=== PATIENT | female | born 1965 | race African-American/Black ===

== ENCOUNTER 2022-06-22 08:40 | Day surgery (SDC) | payer MEDICARE, OTHER ==
[~2022-06-22] VITALS: Ht 157.5 cm; Wt 74.4 kg
[~2022-06-22 08:40] MED LIST: CARAFATE PO; CRESTOR10 MG PO; GINGER PO; HYDROCHLOROT25 MG PO; METFORMIN500 M2 PO; OMEPRAZOLE20 MG PO; OREGANO PO; TUMERIC PO; VALSARTAN160 MG PO; VISTARIL PO; [UNRECOGNIZED DRUG - OTHER] PO
[2022-06-22 11:46] VITALS: BP 160/90
[2022-06-26] MEDS ORDERED: BACTRIM DS1 TAB PO (14:38)
== END 2022-06-22 10:55 | disposition home or self-care (01) ==
LOC: ENDO 08:40 → ORM 14:15 → ENDO 14:50 → ORM 14:50
PROVIDERS: ATTEND Surgery
DX: K60.3 Anal fistula (principal); R13.19 Other dysphagia; Z12.11 Encounter for screening for malignant neoplasm of colon; I10 Essential (primary) hypertension; E11.9 Type 2 diabetes mellitus without complications; Z86.010 Personal history of colon polyps; Z87.19 Personal history of other diseases of the digestive system; Z79.84 Long term (current) use of oral hypoglycemic drugs; Z53.8 Procedure and treatment not carried out for other reasons
CPT/HCPCS: C9290